=== PATIENT | male | born 1995 | race Caucasian/White ===

== ENCOUNTER 2022-03-13 04:56 | Emergency (ER) | payer BC, SELFPAY ==
--- NOTE | ~2022-03-13 | CT_ITS ---
EXAMINATION: CT brain wo con DATE: 03/13/2022 07:07 INDICATION: Altered mental status. TECHNIQUE: Computed tomography (CT) of the head was performed without intravenous contrast. The mA wa s adjusted according to patient size. Iterative reconstruction technique was employed. The dose-lengt h product was 681.00 mGy-cm. COMPARISON: None FINDINGS: There is no intracranial hemorrhage, acute infarction, or abnormal intracranial mass lesion . The ventricles are normal in size. The orbits are normal. There is mild mucosal thickening in the p aranasal sinuses. The mastoid air cells are normal. IMPRESSION: 1. Normal brain. Reviewed, dictated and finalized at location A. RNET SPECIALIST IMPRESSION: 1. Normal brain.
--- NOTE | ~2022-03-13 | XR_ITS ---
EXAMINATION: XR chest 1V portable DATE: 03/13/2022 05:15 INDICATION: Altered mental status. TECHNIQUE: A single frontal view of the chest was obtained. COMPARISON: None. FINDINGS: The chest demonstrates clear lungs without pneumonia, pleural effusion, or pneumothorax. Th e heart size is normal. IMPRESSION: 1. No acute cardiopulmonary disease. Reviewed, dictated and finalized at location A. PER AND TURNER
--- NOTE | 2022-03-13 04:59 | ECG_ITS ---
Measurements Intervals [place] Rate: 96 P: 78 MT: 145 QRS: 58 QRSD: 104 T: 64 QT: 351 QTc: 444 Interpretive Statements SINUS RHYTHM INCOMPLETE RIGHT BUNDLE BRANCH BLOCK NO PREVIOUS ECG AVAILABLE FOR COMPARISON Electronically Signed On 03-13-2022 13:19:23 CHIPPING MACHINE OPERATOR by Jeremias Goel M.D.
[2022-03-13 05:18] LABS: Basophils Absolute Auto 0.1 K/mm3 (0.0-0.1); Basophils Percent Auto 0.8 % (0.2-1.2); Eosinophils Absolute Auto 0.3 K/mm3 (0-0.3); Eosinophils Percent Auto 2.4 % (0-4.4); Hematocrit 43.7 % (42.0-52.0); Hemoglobin 14.5 g/dL (14.0-18.0); Immature Granulocyte Percent A 1.6 % (0-0.5); Lymphocytes Absolute Auto 4.35 K/mm3 (0.9-3.2); Lymphocytes Percent Auto 34.1 % (18.3-44.2); Mean Corpuscular HGB Conc 33.2 g/dl (32-36); Mean Corpuscular Hemoglobin 29.2 pg (26-34); Mean Corpuscular Volume 87.9 fl (80-100); Mean Platelet Volume 10.8 fl (7.4-10.4); Monocytes Absolute Auto 0.9 K/mm3 (0.1-0.6); Monocytes Percent Auto 7.4 % (2.6-8.5); Neutrophils Absolute Auto 6.9 K/mm3 (1.3-6.7); Neutrophils Percent Auto 53.7 % (45.5-73.1); Platelet Count Result 228 k/mm3 (150-375); Red Blood Count 4.97 M/mm3 (4.6-6.20); Red Cell Distribution Width 11.7 % (11.5-14.5); White Blood Count 12.8 K/mm3 (4.5-10.0)
[2022-03-13 05:23] VITALS: BP 140/100; PULSE 107; RESP 20; TEMP 36.6; O2SAT 97
[2022-03-13 05:26] VITALS: PULSE 107
[2022-03-13] MEDS: SODIUM CHLORIDE 0.9% IV 2,000 ML 999 ML IV CONT (05:29)
[2022-03-13 05:32] LABS: Acetaminophen < 10 ug/mL (10-30); Ethanol < 10 mg/dL (<10); Salicylate < 1.0 mg/dL (2-20)
[2022-03-13 05:36] LABS: Albumin Level 5.2 g/dL (3.5-5.1); Alkaline Phosphatase 47 U/L (38-126); Anion Gap 21 mmol/L (8-16); Aspartate Amino Transferase 40 U/L (17-59); Bilirubin,Total 0.7 mg/dL (0.2-1.3); Blood Urea Nitrogen 7 mg/dL (9-20); Calcium 8.7 mg/dL (8.4-10.2); Carbon Dioxide 15 mmol/L (22-30); Chloride 102 mmol/L (98-107); Creatine Kinase 480 U/L (55-170); Estimated CRCL calculation 90 ml/min; Estimated Glomerular Filt Rate > 60; Glucose 182 mg/dL (65-110); Lipase 66 U/L (23-300); Magnesium 2.3 mg/dL (1.6-2.3); Potassium 3.1 mmol/L (3.4-5.0); Sodium 138 mmol/L (137-145)
[2022-03-13 05:37] LABS: Lactic Acid Reflex 12.2 mmol/L (0.7-2.0)
[2022-03-13 05:38] LABS: INR 1.1; Prothrombin Time 13.6 Seconds (11.1-14.7)
[2022-03-13 05:39] LABS: Partial Thromboplastin Time 29.5 SECONDS (22.3-36.8)
[2022-03-13 05:45] LABS: Add Urine Microscopic? YES; Appearance Urine Clear (Clear); Bilirubin Urine Negative (Negative); Blood Urine 1+ (Negative); Color Urine Light Yellow (Yellow); Glucose Urine UA Negative (Negative); Ketones Urine Negative (Negative); Leukocyte Esterase Ur Negative LEU/UL (Negative); Nitrate Urine Negative (Negative); Protein Urine Trace mg/dL (Negative); Urobilinogen Urine 0.2 mg/dL (<2.0)
[2022-03-13 05:49] LABS: Troponin I < 0.012 ng/mL (0.000-0.034)
[2022-03-13 05:51] LABS: Mucus Urine Rare /lpf; WBC Urine 0-3 /hpf
[2022-03-13 06:02] LABS: Amphetamine Screen Urine Negative (Negative); Barbiturate Screen Urine Negative (Negative); Benzodiazepines Screen Urine Positive (Negative); Cannabinoid Screen Urine Positive (Negative); Cocaine Screen Urine Negative (Negative); Methadone Screen Urine Negative (Negative); Opiate Screen Urine Negative (Negative); Phencyclidine Screen Urine Negative (Negative)
[2022-03-13 06:19] LABS: Influenza A QL RT-PCR Negative (Negative); Influenza B QL RT-PCR Negative (Negative); SARS-CoV-2 RNA PCR Negative
--- NOTE | 2022-03-13 06:23 | ED.GENADULT ---
HPI - General Adult General Chief complaint: Overdose <Rocael Gates MD - Last Filed: 03/13/22 22:11> Stated complaint: COMBATIVE, AMS <Rocael Gates MD - Last Filed: 03/13/22 22:11> Time Seen by Provider: 03/13/22 04:58 <Rocael Gates MD - Last Filed: 03/13/22 22:11> History of Present Illness HPI narrative: This is a 27-year-old male coming to ED for seizure activity and aggressive behavior. The patient was with his fiancee and had smoked some marijuana and his THC vape pen. They then went to sleep. The fiancee was woken up as the patient was propped up on his elbow and screaming at the top of his lungs, he then had what she describes as a seizure where his arms or pulled into his chest with shaking back and forth. . He then came out of it but was confused and then had another 32nd episode. She called EMS. When EMS arrived the patient did not want to go to the hospital and became combative. He was then restrained by a 6 firefighters. He was given 5 of Haldol and 2 of Ativan per my medical control. He was then brought to the emergency room <Rocael Gates MD - Last Filed: 03/13/22 22:11> Related Data Allergies/adverse reactions: Allergies Allergy/AdvReac Type Severity Reaction Status Date / Time No Known Allergies Allergy Verified 03/13/22 06:22 <Rocael Gates MD - Last Filed: 03/13/22 22:11> [facility] Past Medical History Medical History: Medical History (Updated 03/13/22 @ 22:11 by Rocael Gates MD) Healthy male adult <Rocael Gates MD - Last Filed: 03/13/22 22:11> Exam Narrative: APPEARANCE:Anxious appearing, confused but alert x3 Head: atraumatic. EYES: EOMI, 2 mm reactive NOSE: Atraumatic NECK: Trachea midline RESPIRATORY: No increased rate of breathing, CTAB, CARDIOVASCULAR: RRR, no peripheral edema ABDOMINAL: Non-distended, Nontender no guarding or rebound MUSCULOSKELETAl: No obvious deformities NEURO: Alert. Moving 4/4 extremities SKIN:: Warm, dry. Normal color PSYCHIATRIC: Normal affect <Rocael Gates MD - Last Filed: 03/13/22 22:11> Course Reevaluation(s) Reevaluation #1: Patient care was signed out to me by Dr. Gates with the repeat lactic acid pending. Patient had been offered admission for seizure work-up but patient has declined. Patient was encouraged to have close follow-up with neurology as outpatient. All questions concerns were addressed. <Aleksandr Ambrose MD - Last Filed: 03/13/22 14:53> Vital Signs Vital signs: Vital Signs Temperature 97.9 F 03/13/22 05:23 Pulse Rate 107 H 03/13/22 05:23 Respiratory Rate 20 03/13/22 05:23 Blood Pressure 140/100 H 03/13/22 05:23 Pulse Oximetry 97 03/13/22 05:23 Oxygen Delivery Room Air 03/13/22 05:23 Temperature 97.9 F 03/13/22 05:23 Pulse Rate 87 03/13/22 09:56 Respiratory Rate 18 03/13/22 09:56 Blood Pressure 117/70 03/13/22 09:56 Pulse Oximetry 99 03/13/22 09:56 Oxygen Delivery Room Air 03/13/22 05:23 <Rocael Gates MD - Last Filed: 03/13/22 22:11> Vital Signs Temperature 97.9 F 03/13/22 05:23 Pulse Rate 107 H 03/13/22 05:23 Respiratory Rate 20 03/13/22 05:23 Blood Pressure 140/100 H 03/13/22 05:23 Pulse Oximetry 97 03/13/22 05:23 Oxygen Delivery Room Air 03/13/22 05:23 Temperature 97.9 F 03/13/22 05:23 Pulse Rate 87 03/13/22 09:56 Respiratory Rate 18 03/13/22 09:56 Blood Pressure 117/70 03/13/22 09:56 Pulse Oximetry 99 03/13/22 09:56 Oxygen Delivery Room Air 03/13/22 05:23 <Aleksandr Ambrose MD - Last Filed: 03/13/22 14:53> Medical Decision Making MDM Narrative Medical decision making narrative: this is a 27-year-old male presenting ED after possible seizure activity is home as well as aggressive nose with EMS. Toxicology workup, CT head and EKG and chest x-ray have been ordered. Patient is given several L of IV fluid. Patient had to be restrained when he
[2022-03-13 06:26] LABS: Alanine Aminotransferase 48 U/L (6-50)
[2022-03-13] MEDS: SODIUM CHLORIDE 0.9% IV 1,000 ML 999 ML IV CONT (06:40)
[2022-03-13 07:23] VITALS: BP 123/69; PULSE 93; RESP 24; O2SAT 100
[2022-03-13 08:14] LABS: Reflex Lactic Acid Yes or No Add Lactic
[2022-03-13 08:39] LABS: Lactic Acid 0.9 mmol/L (0.7-2.0)
[2022-03-13 08:53] VITALS: BP 123/57; PULSE 73; RESP 18
[2022-03-13 09:56] VITALS: BP 117/70; PULSE 87; RESP 18; O2SAT 99
== END 2022-03-13 09:57 | disposition home or self-care (01) ==
PROVIDERS: Emergency Provider Emergency Medicine
DX: R56.9 Unspecified convulsions (principal); R45.6 Violent behavior; F12.90 Cannabis use, unspecified, uncomplicated; F13.90 Sedative, hypnotic, or anxiolytic use, unspecified, uncomplicated; Z20.822 Contact with and (suspected) exposure to COVID-19; I45.10 Unspecified right bundle-branch block
CPT/HCPCS: 36415; 70450; 71045; 80053; 80307; 81001; 82550; 83605; 83690; 83735; 84100; 84443; 84484; 85025; 85610; 85730; 87636; 93005; 96360; 96361; 99284; J7030

== ENCOUNTER 2022-03-14 11:05 | Outpatient (CLI) | payer BC, SELFPAY ==
[2022-03-14 21:29] LABS: Alanine Aminotransferase 50 U/L (6-50); Albumin Level 4.8 g/dL (3.5-5.1); Alkaline Phosphatase 48 U/L (38-126); Anion Gap 7 mmol/L (8-16); Aspartate Amino Transferase 132 U/L (17-59); Bilirubin,Total 0.9 mg/dL (0.2-1.3); Blood Urea Nitrogen 6 mg/dL (9-20); Calcium 8.7 mg/dL (8.4-10.2); Carbon Dioxide 30 mmol/L (22-30); Chloride 104 mmol/L (98-107); Estimated Glomerular Filt Rate > 60; Glucose 100 mg/dL (65-110); Potassium 3.8 mmol/L (3.4-5.0); Sodium 141 mmol/L (137-145)
== END 2022-03-14 11:06 | disposition home or self-care (01) ==
LOC: ANHGOSHLAB 11:07
PROVIDERS: PCP Family Medicine; Visit Provider Family Medicine
DX: E87.6 Hypokalemia (principal)
CPT/HCPCS: 36415; 80053

== ENCOUNTER 2022-05-03 04:31 | Observation (INO) | payer BC, SELFPAY ==
[2022-05-03] VITALS (10 sets, daily range): BP systolic 116–158; BP diastolic 70–82; PULSE 69–115; RESP 12–23; TEMP 36.4–37.4; O2SAT 97–100; BMI 21.9
--- NOTE | ~2022-05-03 | MR_ITS ---
EXAMINATION: MR brain/brain stem wo/w con DATE: 05/03/2022 10:12 INDICATION: New onset seizure TECHNIQUE: Magnetic resonance imaging (MRI) of the brain and brainstem was performed without and with 15 mL Multihance intravenous contrast. Sequences included sagittal and axial T1-weighted SE, axial d iffusion-weighted FS SE, axial T2*-weighted GRE, axial T2-weighted FLAIR, and axial T2-weighted FSE. Postcontrast axial and coronal T1-weighted SE was obtained. Apparent diffusion coefficient (ADC) maps were created. COMPARISON: None. FINDINGS: There are no areas of restricted diffusion to suggest acute infarction. No intracranial hemorrhage or abnormal intracranial mass lesion. There are no intraparenchymal signal abnormalities seen on the ot her pulse sequences. The ventricles are symmetric and normal in size. Bilateral hippocampi appear nor mal and symmetric. No ornelas matter heterotopias or other neuronal migrational abnormalities identified . There are no abnormal extra-axial fluid collections. Flow voids are seen in the cerebral arteries o n the T2-weighted sequences consistent with their expected patency. Visualized orbits and soft tissue s are unremarkable. There are no areas of abnormal enhancement on the post contrast images. IMPRESSION: 1. Normal brain MR. Reviewed, dictated and finalized at location A. TRUCK OPERATOR IMPRESSION: 1. Normal brain MR.
--- NOTE | 2022-05-03 04:35 | ECG_ITS ---
Measurements Intervals [place] Rate: 115 P: 73 VT: 151 QRS: 57 QRSD: 105 T: 48 QT: 330 QTc: 457 Interpretive Statements SINUS TACHYCARDIA OTHERWISE NORMAL ECG COMPARED TO ECG 03/13/2022 05:07:34 SINUS TACHYCARDIA NOW PRESENT Electronically Signed On 05-03-2022 14:50:00 LABORER LIVESTOCK by Miguel Ángel Cochran M.D.
[2022-05-03 04:55] LABS: Basophils Absolute Auto 0.1 K/mm3 (0.0-0.1); Basophils Percent Auto 0.7 % (0.2-1.2); Eosinophils Absolute Auto 0.3 K/mm3 (0-0.3); Eosinophils Percent Auto 2.9 % (0-4.4); Hematocrit 44.5 % (42.0-52.0); Immature Granulocyte Absolute 0.09 K/mm3 (0.00-0.031); Immature Granulocyte Percent A 0.9 % (0-0.5); Lymphocytes Percent Auto 33.5 % (18.3-44.2); Mean Corpuscular HGB Conc 33.7 g/dl (32-36); Mean Corpuscular Hemoglobin 29.4 pg (26-34); Mean Corpuscular Volume 87.3 fl (80-100); Monocytes Percent Auto 9.4 % (2.6-8.5); Neutrophils Absolute Auto 5.4 K/mm3 (1.3-6.7); Neutrophils Percent Auto 52.6 % (45.5-73.1); Platelet Count Result 265 k/mm3 (150-375); White Blood Count 10.2 K/mm3 (4.5-10.0)
[2022-05-03] MEDS: LACTATED RINGERS 1,000 ML 999 ML IV CONT (05:03)
[2022-05-03 05:10] LABS: Alanine Aminotransferase 53 U/L (6-50); Albumin Level 4.6 g/dL (3.5-5.1); Alkaline Phosphatase 60 U/L (38-126); Anion Gap 16 mmol/L (8-16); Aspartate Amino Transferase 43 U/L (17-59); Bilirubin,Total 0.5 mg/dL (0.2-1.3); Blood Urea Nitrogen 11 mg/dL (9-20); Calcium 8.6 mg/dL (8.4-10.2); Carbon Dioxide 19 mmol/L (22-30); Chloride 103 mmol/L (98-107); Estimated CRCL calculation 96 ml/min; Estimated Glomerular Filt Rate > 60; Glucose 152 mg/dL (65-110); Potassium 3.6 mmol/L (3.4-5.0); Sodium 138 mmol/L (137-145)
[2022-05-03 05:22] LABS: Lactic Acid Reflex 4.8 mmol/L (0.7-2.0)
--- NOTE | 2022-05-03 06:19 | ED.SEIZURE ---
HPI - Seizure General Chief Complaint: Seizure Stated Complaint: SEIZURE Time Seen by Provider: 05/03/22 04:33 History of Present Illness HPI Narrative: Patient presents with seizure-like activity witnessed by his girlfriend here, he became quite agitated and confused and was not responsive, EMS was called and per EMS report, required multiple people to hold him down. He had a similar episode back in February, had been seen by neurology with an EEG done as an outpatient in March which did not see anything. Is not currently on any medications. Does admit to recent alcohol use. He is still little bit confused what happened. Does not recall anything. Denies any symptoms. Seizure History: Yes (first one feb 2022) Related Data Allergies Allergy/AdvReac Type Severity Reaction Status Date / Time No Known Allergies Allergy Verified 03/14/22 10:01 Review of Systems Review of Systems: CONST: No fever. HEENT: No sore throat C/V: No chest pain RESP: No cough GI: No nausea or vomiting : No dysuria. M/S: No joint pain. SKIN: No rash. NEURO: Seizure PSYCH: [No depression] REPLACED BY [facility] Past Medical History Medical History (Updated 05/03/22 @ 06:23 by Linda Cam MD) Seizures Social History Social History Smoking status: Current every day smoker Tobacco type: cigarettes and e-cigarettes/vaping Alcohol intake: current Substance use: current Substance use type: marijuana Lack of Transportation: No Lack of Food: Never True Current Housing: I Have Housing Concerned About Future Housing: No Difficulty Paying Gas/Electric Bills: No Difficulty Paying for Meds: No Currently Unemployed: No Education: High School Diploma/GED Difficulty w/ Childcare or Family Care: No Living arrangements: with family Additional living arrangements comments: Fiance Occupation/Education: occupation Gender identity (if verbalized by the patient): Male Sexual Orientation (if Verbalized by the Patient): Straight or Heterosexual Spiritual care concerns: No Agree to blood products: Yes Exam Narrative: EXAMINATION OF ORGAN SYSTEMS/BODY AREAS: Constitutional: Vital signs per nursing GENERAL: Appears quite agitated HEAD: Normal with no signs of head trauma. EYES: EOMI, conjunctiva normal ENT: Hearing grossly intact LUNGS: Nonlabored breathing. HEART: Tachycardic ABD: [Soft], [nontender to palpation] EXT: Normal range of motion SKIN: [No rashes or lesions.] NEURO: [Alert and oriented x 2. No gross focal sensory or strength deficits.] PSYCH: Anxious/agitated affect Course Vital Signs Vital signs: Vital Signs Temperature 98.2 F 05/03/22 04:28 Pulse Rate 115 H 05/03/22 04:28 Respiratory Rate 20 05/03/22 04:28 Blood Pressure 158/80 H 05/03/22 04:28 Pulse Oximetry 98 05/03/22 04:28 Oxygen Delivery Room Air 05/03/22 04:28 Temperature 98.2 F 05/03/22 04:28 Pulse Rate 115 H 05/03/22 04:28 Respiratory Rate 20 05/03/22 04:28 Blood Pressure 158/80 H 05/03/22 04:28 Pulse Oximetry 98 05/03/22 04:28 Oxygen Delivery Room Air 05/03/22 04:28 MDM - Seizure MDM Narrative Medical decision making narrative: 27-year-old male presenting with breakthrough seizures occurring today, likely from recent alcohol use and possible epilepsy, . Accu-Chek is normal. Seizure precautions are initiated. I did discuss with the patient and girlfriend at bedside discharge with starting Keppra as this is his second seizure at this time, with follow-up as an outpatient to neurology, however the girlfriend is quite worried about him and would really like him to be admitted for neurology consult here. As he has not had any MRI or imaging other than the CT head back in February, I do feel this is reasonable. At this time, he is becoming more more alert, and is now back to his baseline. Discussed with hospitalist for admission, case discussed with
[2022-05-03 06:25] LABS: Amphetamine Screen Urine Negative (Negative); Barbiturate Screen Urine Negative (Negative); Benzodiazepines Screen Urine Positive (Negative); Cannabinoid Screen Urine Positive (Negative); Cocaine Screen Urine Negative (Negative); Methadone Screen Urine Negative (Negative); Opiate Screen Urine Negative (Negative); Phencyclidine Screen Urine Negative (Negative)
[2022-05-03 06:31] LABS: Influenza A QL RT-PCR Negative (Negative); Influenza B QL RT-PCR Negative (Negative); RSV RNA, RT-PCR Negative (Negative); SARS-CoV-2 RNA PCR Negative
[2022-05-03 07:52] LABS: Reflex Lactic Acid Yes or No Add Lactic
--- NOTE | 2022-05-03 09:41 | PC.NURSE ---
Pt states he does not want Keppra until he consults neuro.
--- NOTE | 2022-05-03 11:46 | WPDNEURCNPN ---
Assessment and Plan Assessment and plan (1) Seizures: Code(s): R56.9 - Unspecified convulsions Status: Acute Plan Demarcus Thomas is a previously healthy 27 year old male with a history of provoked seizure presenting due to a second seizure. UDS was positive for benzodiazepine and marijuana. It's possible that this was a provoked seizure as well. Discussed risk vs benefit of starting anti-seizure medication with patient and family. He is agreeable to start Keppra. MRI brain was normal. Routine EEG from March 2022 was reportedly normal as well. 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 Patient had a first time seizure in February 2022 in the sustainability specialist hours. His fiance described the episodes as his arms pulled into his chest with full body shaking. Afterwards he had agonal breathing and was confused for sometime. Patient was evaluated at [facility] ED and refused admission at that time. He did see Neurologist in March 2022 and had a normal routine EEG. He did smoke marijuana and a THC vape pen just prior to the seizure so it was thought to be provoked. Therefore he was not started on any anti-seizure medication. Patient had a subsequent seizure last night that was similar in description, lasting 1-2 minutes. This seizure occurred in the sustainability specialist hours after he got up to go to the bathroom. He was taken to [facility] ED where he was back to baseline at time of arrival. His CT head was negative. MRI brain done this morning was normal as well. UDS was positive for benzodiazepine, marijuana, and alcohol. He denies any family history of seizures. He denies any developmental delays during childhood. He works in construction currently. Review of Systems Constitutional: Constitutional: Reports no additional constitutional complaints Eyes: Eyes: Reports no additional eye complaints ENT: Reports system reviewed and no additional complaints, except as documented Cardiovascular: Cardiovascular: Reports no additional cardiovascular complaints Respiratory: Respiratory: Reports no additional respiratory complaints Gastrointestinal: Gastrointestinal: Reports no additional gastrointestinal complaints Genitourinary: Genitourinary: Reports no additional male genitourinary complaints Musculoskeletal: Musculoskeletal: Reports no additional musculoskeletal complaints Integumentary/Breasts: Skin/Breast: Reports system reviewed and no additional complaints, except as docu Neurologic: Reports as per HPI Psychiatric: Psychiatric: Reports anxiety PMFSH Past Medical History Medical History Seizures Social History Social History Smoking status: Current every day smoker Tobacco type: cigarettes and e-cigarettes/vaping Alcohol intake: current Substance use: current Substance use type: marijuana Lack of Transportation: No Lack of Food: Never True Current Housing: I Have Housing Concerned About Future Housing: No Difficulty Paying Gas/Electric Bills: No Difficulty Paying for Meds: No Currently Unemployed: No Education: High School Diploma/GED Difficulty w/ Childcare or Family Care: No Living arrangements: with family Additional living arrangements comments: Fiance Occupation/Education: occupation Gender identity (if verbalized by the patient): Male Sexual Orientatio
--- NOTE | 2022-05-03 12:31 | PM.IMHP ---
H&P: HPI History of Present Illness Date/Time: 05/03/22 12:31 Chief Complaint: Seizure Narrative: Patient was brought to the ER on account of Seizure. Patient had his first episode In February sleep onset seizure was evaluated and on discharge he followed up with neurology In [facility]. Early this morning he had another sleep onset seizure which and was brought to the ER. In the ER labs notable for LA 4.8, UDS positive for Benzo and Cannabinoids, MRI normal and EEG pending. Neurology consulted prior to admission. Denies any chest pain, SOB, fever, abd pain, diarrhea and dysuria. Review of Systems Review of Systems: All systems reviewed & are unremarkable except as noted in HPI and below PMFSH Past Medical History Medical History Seizures Social History Social History Smoking status: Current every day smoker Tobacco type: cigarettes and e-cigarettes/vaping Alcohol intake: current Substance use: current Substance use type: marijuana Lack of Transportation: No Lack of Food: Never True Current Housing: I Have Housing Concerned About Future Housing: No Difficulty Paying Gas/Electric Bills: No Difficulty Paying for Meds: No Currently Unemployed: No Education: High School Diploma/GED Difficulty w/ Childcare or Family Care: No Living arrangements: with family Additional living arrangements comments: Fiance Occupation/Education: occupation Gender identity (if verbalized by the patient): Male Sexual Orientation (if Verbalized by the Patient): Straight or Heterosexual Spiritual care concerns: No Agree to blood products: Yes Meds Home Medications and Allergies Allergies Allergy/AdvReac Type Severity Reaction Status Date / Time No Known Allergies Allergy Verified 03/14/22 10:01 Vital Signs Vital Signs - 24 hr 05/03/22 04:28 05/03/22 04:53 05/03/22 07:47 Temperature 98.2 F Pulse Rate 115 H 107 H 69 Respiratory Rate 20 18 23 H Blood Pressure 158/80 H 133/70 129/81 Pulse Oximetry 98 100 99 Oxygen Delivery Room Air 05/03/22 08:02 05/03/22 11:20 Temperature 97.5 F L Pulse Rate 70 86 Respiratory Rate 14 12 Blood Pressure 116/82 137/77 Pulse Oximetry 97 100 Oxygen Delivery Exam Narrative: Const:?? General: comfortab le and no acute di stress HENMT:?? Mouth: Yes moist m ucous membranes Eyes:?? Pupils: Equal, rou nd and reactive pu pils present? EOM: EOMs intact bilat erally Resp:?? Effort & Inspectio n: normal respirat ory effort Cardio:?? Rate: regular rate ? Rhythm: regular rhythm GI:?? GI Palp: Yes Soft to palpation Skin:?? General skin exam: normal color Neuro:?? Other: Pupils equa l and reactive felix aterally, EOMI, fa ce symmetric, faci al sensation intac t, tongue protrude s midline, palate midline. Shoulder shrug normal. Stre ngth 5/5 throughou t. Sensation intac t throughout, FNF normal bilaterally . Language compreh ension and fluency intact. Gait defe rred. Extrem:?? General: normal to inspection Psych:?? Mental Status: men emma status grossly normal? Affect: n ormal affect H&P: Resu
--- NOTE | 2022-05-03 13:18 | ADMGEN ---
This patient, Demarcus Terry, was admitted to [facility] Room 309-01. Patient/family oriented to hospital policies and general routines including ID bracelet, bed and alarms, visiting hours, pain management, procedures, bathroom and other care routines, personal items, smoking policy, room service/diet, and visiting hours. Information on how to activate the Rapid Response Team has been discussed. Patient/Family are encouraged to report perceived risks to care and to ask questions if they do not understand what they are told or what they should do. Report from Jarrod.
--- NOTE | 2022-05-03 14:17 | PC.NURSE ---
Called Dr. Castellano around 1330 to tell him that pt would like to talk to him. Pt stated that he did not see the DrTasha or speak to him. Pt has questions.
[2022-05-03] MEDS: levETIRAcetam 1000MG/NACL100ML 1,000 MG/100 ML BAG 400 MG IVPB (16:53)
[2022-05-04] VITALS: PULSE 73
[2022-05-04 04:00] VITALS: PULSE 98
[2022-05-04] MEDS: levETIRAcetam 1000MG/NACL100ML 1,000 MG/100 ML BAG 400 MG IVPB (04:08)
--- NOTE | 2022-05-04 05:13 | PC.NURSE ---
At 04:08 administered Keppra I.V. medication and ran at a rate of 400 ml an hour. Finished at 04:23. Patient then complained at approximately 05:10 that he was having some irritation after the infusion but denied having any itching or pain to the site. Assessed I.V. line and was still patent. Site of I.V. line looked slightly reddened but no clear sign of an infiltration or elevation of the site. Charge nurse Shakila notified will continue to monitor.
[2022-05-04 06:00] VITALS: BP 126/76; PULSE 73; RESP 17; TEMP 37.1; O2SAT 100
[2022-05-04 06:55] LABS: Basophils Percent Auto 0.4 % (0.2-1.2); Eosinophils Absolute Auto 0.1 K/mm3 (0-0.3); Eosinophils Percent Auto 1.4 % (0-4.4); Hematocrit 41.7 % (42.0-52.0); Hemoglobin 13.9 g/dL (14.0-18.0); Immature Granulocyte Absolute 0.03 K/mm3 (0.00-0.031); Immature Granulocyte Percent A 0.4 % (0-0.5); Lymphocytes Absolute Auto 1.83 K/mm3 (0.9-3.2); Lymphocytes Percent Auto 22.9 % (18.3-44.2); Mean Corpuscular HGB Conc 33.3 g/dl (32-36); Mean Corpuscular Volume 86.9 fl (80-100); Mean Platelet Volume 10.3 fl (7.4-10.4); Monocytes Absolute Auto 0.8 K/mm3 (0.1-0.6); Monocytes Percent Auto 10.2 % (2.6-8.5); Neutrophils Absolute Auto 5.2 K/mm3 (1.3-6.7); Neutrophils Percent Auto 64.7 % (45.5-73.1); Platelet Count Result 251 k/mm3 (150-375); Red Cell Distribution Width 12.4 % (11.5-14.5)
[2022-05-04 07:07] LABS: Alanine Aminotransferase 55 U/L (6-50); Albumin Level 4.5 g/dL (3.5-5.1); Alkaline Phosphatase 48 U/L (38-126); Anion Gap 6 mmol/L (8-16); Aspartate Amino Transferase 54 U/L (17-59); Bilirubin,Total 1.1 mg/dL (0.2-1.3); Blood Urea Nitrogen 10 mg/dL (9-20); Calcium 8.7 mg/dL (8.4-10.2); Carbon Dioxide 29 mmol/L (22-30); Chloride 104 mmol/L (98-107); Estimated CRCL calculation 105 ml/min; Estimated Glomerular Filt Rate > 60; Glucose 111 mg/dL (65-110); Potassium 4.1 mmol/L (3.4-5.0); Sodium 139 mmol/L (137-145)
--- NOTE | 2022-05-04 09:02 | P.DS_ITS ---
DS: Admitting Diagnosis Discharge Date 05/04/22 Admitting Diagnosis Seizure DS: Discharge Diagnosis Discharge Diagnosis (1) Seizures: Code(s): R56.9 - Unspecified convulsions Status: Acute DS: Summary Hospital Course Reason for hospitalization: Seizure Hospital Course: Presented to the Er after a seizure that started during sleep, this is second episode, last one was in February. MRI brain and EEG from last month was normal. Patient was started on Keppra 1000 bid, no events overnight. Was seen by neurology. Discharged today on Keppra 1000mg bid to follow up with his neurology as [facility] as scheduled. No driving or operating heavy machinery until seizure free for 6 months. Time Spent with Patient Time attestation: Total time spent providing and/or coordinating discharge services: DS: Data Data Completed and Pending Labs on day of discharge: Labs from last 24 hours 05/04/22 05/04/22 05:57 05:57 WBC 8.0 RBC 4.80 Hgb 13.9 L Hct 41.7 L MCV 86.9 MCH 29.0 MCHC 33.3 RDW 12.4 Plt Count 251 MPV 10.3 Immature Gran % (Auto) 0.4 Neut % (Auto) 64.7 Lymph % (Auto) 22.9 [place] % (Auto) 10.2 H Eos % (Auto) 1.4 Baso % (Auto) 0.4 Lymph # (Auto) 1.83 [place] # (Auto) 0.8 H Eos # (Auto) 0.1 Baso # (Auto) 0.0 Abs Immat Gran (auto) 0.03 Absolute Neuts (auto) 5.2 Absolute Nucleated RBC 0.0 Nucleated RBC % 0.0 Sodium 139 Potassium 4.1 Chloride 104 Carbon Dioxide 29 Anion Gap 6 L BUN 10 Creatinine 1.00 Estim Creat Clear Calc 105 Estimated GFR > 60 Glucose 111 H Calcium 8.7 Total Bilirubin 1.1 AST 54 ALT 55 H Alkaline Phosphatase 48 Total Protein 7.0 Albumin 4.5 Discharge Plan Discharge Attending physician on discharge: Natalee Castellano Consulting providers: Leelee Rico ; Eileen Ly Discharging Clinician: Natalee Castellano Anticipated Discharge Date/Time: 05/04/22 08:58 Patient Disposition: Home, Self-Care Activity: no driving and other - see discharge instructions Diet: as tolerated Discharge Instructions: No driving or operating heavy machinery until seizure free for 6 months Stand Alone Forms: General Discharge Information Follow-up/Referrals: Noe Shah MD [Primary Care Provider] - (F/u with PCP in 3-5 days F/u with neurologist at [facility] as scheduled ) Discharge Medications: New levetiracetam [Roweepra] 1,000 mg tablet 1,000 mg PO BID Qty: 60 0RF No Action No Home Medications Date of admission: 05/03/22 05:38 Primary Care Provider: Noe Shah Admitting Provider: Leelee Rico Attending physician on admission: Leelee Rico Condition: Improved
--- NOTE | 2022-05-06 10:22 | WPDNEUROLOGY ---
Neurology EEG Report General Information Date of Study: 05/03/22 TEST EEG DIAGNOSIS new onset seizures CONDITION OF RECORDING awake and drowsy EEG NUMBER 23-30 CLINICAL HISTORY patient reports he had a seizure this morning had a similar episode about a week ago. EEG DESCRIPTION Basic resting occipital frequency consists of fairly well-organized low to medium voltage 8 to 10 hertz per 2nd alpha admixed with low-voltage 15 to 18 hertz per 2nd beta. During drowsiness low-voltage beta activity seen diffusely admixed with waxing and waning posterior alpha rhythm. Bilateral symmetrical sleep activity seen during sleep in addition to the multiple muscle artifacts. Hyperventilation not done. Photic stimulation not done. Non paroxysmal. Nonfocal. Nonlateralizing. IMPRESSION Normal record. Clinical correlation recommended the normal EEG does not rule out the possibility of seizure.
== END 2022-05-04 09:45 | disposition home or self-care (01) ==
LOC: ANHED 06:23 → ANH3MEDSUR 12:58
PROVIDERS: Admitting Provider Internal Medicine; Emergency Provider Emergency Medicine; PCP Family Medicine; Visit Provider Internal Medicine
DX: R56.9 Unspecified convulsions (principal); F17.210 Nicotine dependence, cigarettes, uncomplicated; F17.290 Nicotine dependence, other tobacco product, uncomplicated; Z20.822 Contact with and (suspected) exposure to COVID-19
CPT/HCPCS: 36415; 70553; 80053; 80307; 83605; 85025; 87637; 93005; 95816; 96361; 96374; 96376; 99285; A9577; G0378; J1953; J7120